=== PATIENT | male | born 1970 | race Caucasian/White ===

== ENCOUNTER 2018-11-01 10:07 | Observation (INO) | payer MEDICAID ==
[~2018-11-01] VITALS: Ht 193 cm; Wt 144.1 kg
--- NOTE | 2018-11-01 10:07 | NUR ---
JIE from [facility] c/o sternal chest pressure/tightness rad to left chest onset ~ 0500 today, denies NV or injury; PIV, 325 ASA, NTG x1, 4mg morphine RELAY TESTER per EMS; hx 1pk/day smoker, HTN, recent bronchitis; pt changed into gown, responds approp to staff, comfort measures provided, at BS, call light within reach; cardiac, NIBP & SpO2 monitors in place.
[2018-11-01] MEDS ORDERED: SODIUM CHLORIDE FLUSH 10ML SYR IVF ONE (10:30)
[2018-11-01] MEDS ORDERED: NITROGLYCERIN OINT 2%, 1GM TP ONE ×2 (10:30→10:32)
[2018-11-01 10:55] LABS: BASOPHILS # (AUTO) 0.08 x10^3/uL (0-0.1); BASOPHILS % (AUTO) 1 % (0-1); EOSINOPHILS # (AUTO) 0.51 x10^3/uL (0-0.4); EOSINOPHILS % (AUTO) 4 % (1-7); LYMPHOCYTES # (AUTO) 2.67 x10^3/uL (1-3.4); LYMPHOCYTES % (AUTO) 23 % (22-44); MD NO; MEAN CORPUSCULAR HGB CONC 33.3 g/dL (33.2-36.2); MEAN CORPUSCULAR VOLUME 90.2 fL (81-97); MEAN PLATELET VOLUME 8.3 fL (7.4-10.4); MONOCYTES # (AUTO) 0.74 x10^3/uL (0.2-0.8); MONOCYTES % (AUTO) 6 % (2-9); NEUTROPHILS # (AUTO) 7.72 x10^3/uL (1.8-6.8); NEUTROPHILS % (AUTO) 66 % (42-75); PLATELET COUNT 225 x10^3/uL (130-400); RED BLOOD COUNT 5.53 x10^6/uL (4.38-5.82); RED CELL DISTRIBUTION WIDTH 13.8 % (9.4-14.8)
[2018-11-01 10:56] LABS: ALBUMIN 3.4 g/dL (3.4-5.0); ANION GAP 3 mmol/L (5-15); CALCIUM 8.8 mg/dL (8.5-10.1); CHLORIDE 107 mmol/L (98-107)
[2018-11-01 11:00] LABS: CREATININE 0.84 mg/dL (0.7-1.3); TROPONIN I < 0.015 ng/mL (0.000-0.045)
[2018-11-01] MEDS ORDERED: PLEASE ENTER ALLERGIES MC SCH (11:00)
--- NOTE | 2018-11-01 11:02 | NUR ---
pt laying on gurney awake & comfortable, responds approp to staff, NAD, comfort measures provided, family at BS, call light within reach.
--- NOTE | 2018-11-01 11:19 | NUR ---
ERP at BS updating pt & family on POC
--- NOTE | 2018-11-01 12:17 | NUR ---
Pt [facility], room [facility]-1. Report called to Stefan.
[2018-11-01] MEDS ORDERED: ONDANSETRON 2MG/ML, 2ML IVPush PRN (12:30)
[2018-11-01] MEDS ORDERED: morphine SULFATE 10 MG/ML, 1ML IVPush PRN (12:30)
[2018-11-01] MEDS ORDERED: ACETAMINOPHEN 325 MG TABLET PO PRN (12:30)
[2018-11-01] MEDS ORDERED: NITROGLYCERIN 0.4 MG BOTTLE (25 TABS) SL PRN (12:30)
[2018-11-01] MEDS ORDERED: LABETALOL 5MG/ML, 20ML IVPush PRN (12:30)
[2018-11-01 12:42] VITALS: BP 134/80
[2018-11-01 12:44] LABS: D-DIMER < 0.19 ug/mlFEU (0.00-0.52); INTERNATIONAL NORMALIZED RATIO 0.98 (0.93-1.1); PARTIAL THROMBOPLASTIN TIME 32 Seconds (25-31); PROTHROMBIN TIME 10.3 Seconds (9.6-11.5)
[2018-11-01 12:45] LABS: BASOPHILS # (AUTO) 0.12 x10^3/uL (0-0.1); BASOPHILS % (AUTO) 1 % (0-1); EOSINOPHILS # (AUTO) 0.59 x10^3/uL (0-0.4); EOSINOPHILS % (AUTO) 5 % (1-7); LYMPHOCYTES # (AUTO) 3.36 x10^3/uL (1-3.4); LYMPHOCYTES % (AUTO) 26 % (22-44); MD NO; MEAN CORPUSCULAR HEMOGLOBIN 30.9 pg (27.5-34.5); MEAN CORPUSCULAR HGB CONC 34.5 g/dL (33.2-36.2); MEAN CORPUSCULAR VOLUME 89.7 fL (81-97); MEAN PLATELET VOLUME 8.4 fL (7.4-10.4); MONOCYTES # (AUTO) 0.78 x10^3/uL (0.2-0.8); MONOCYTES % (AUTO) 6 % (2-9); NEUTROPHILS % (AUTO) 62 % (42-75); PLATELET COUNT 220 x10^3/uL (130-400); RED BLOOD COUNT 5.44 x10^6/uL (4.38-5.82); RED CELL DISTRIBUTION WIDTH 13.9 % (9.4-14.8)
[2018-11-01 12:48] LABS: CHOL/HDL RATIO 4.4; LDL/HDL RATIO 2.2 (0.5-3.0)
[2018-11-01 12:53] VITALS: BP 145/83
[2018-11-01] MEDS: SODIUM CHLORIDE 0.9% 1,000 ML IV SCH (12:57)
[2018-11-01] MEDS: HEPARIN 5,000 UNITS/ML, 1ML SQ SCH ×2 (12:58→22:01)
[2018-11-01] MEDS: NICOTINE 14MG/24 HR PATCH.TD24 TD SCH (12:58)
[2018-11-01] MEDS ORDERED: RAMI10CA59 PO (14:36)
[2018-11-01] MEDS ORDERED: ALBU8.5H8 INH (14:36)
[2018-11-01] MEDS ORDERED: HYDR25TA6 PO (14:36)
[2018-11-01] MEDS ORDERED: DIPH25CA61 PO (14:36)
[2018-11-01 16:02] LABS: TROPONIN I < 0.015 ng/mL (0.000-0.045)
[2018-11-01 19:28] VITALS: BP 120/67
[2018-11-01 21:22] LABS: TROPONIN I < 0.015 ng/mL (0.000-0.045)
[2018-11-01] MEDS: ATORVASTATIN 80 MG TABLET PO SCH (22:00)
[2018-11-02 01:21] VITALS: BP 128/68
[2018-11-02 03:33] LABS: ALBUMIN 3.3 g/dL (3.4-5.0); ANION GAP 3 mmol/L (5-15); CALCIUM 8.2 mg/dL (8.5-10.1); CHLORIDE 110 mmol/L (98-107)
[2018-11-02 03:38] LABS: ALANINE AMINOTRANSFERASE 22 U/L (12-78); ALKALINE PHOSPHATASE 78 U/L (45-117); BILIRUBIN,TOTAL 0.3 mg/dL (0.2-1.0); CREATININE 0.83 mg/dL (0.7-1.3); TOTAL PROTEIN 6.5 g/dL (6.4-8.2); TROPONIN I < 0.015 ng/mL (0.000-0.045)
[2018-11-02] MEDS: HEPARIN 5,000 UNITS/ML, 1ML SQ SCH ×3 (05:57→23:00)
[2018-11-02 07:30] VITALS: BP 148/79
[2018-11-02] MEDS: SODIUM CHLORIDE 0.9% 1,000 ML IV SCH (08:24)
[2018-11-02] MEDS: ASPIRIN 81 MG TABLET CHEW PO SCH (08:24)
[2018-11-02] MEDS: NICOTINE 14MG/24 HR PATCH.TD24 TD SCH (12:52)
[2018-11-02 13:25] VITALS: BP 127/67
[2018-11-02] MEDS: GUAIFENESIN 200 MG TABLET PO SCH ×2 (17:24→20:09)
[2018-11-02 18:55] LABS: MICROSCOPIC NOT IND
[2018-11-02 19:44] VITALS: BP 132/73
[2018-11-02] MEDS ORDERED: LORazepam 0.5MG TABLET ONE (20:08)
[2018-11-02] MEDS: ATORVASTATIN 80 MG TABLET PO SCH (20:09)
[2018-11-02] MEDS ORDERED: LORazepam 0.5MG TABLET PO ONE (20:30)
[2018-11-03 01:28] VITALS: BP 147/78
[2018-11-03] MEDS: SODIUM CHLORIDE 0.9% 1,000 ML IV SCH (05:15)
[2018-11-03] MEDS: GUAIFENESIN 200 MG TABLET PO SCH ×2 (06:24→12:10)
[2018-11-03 07:15] VITALS: BP 134/78
[2018-11-03] MEDS: ASPIRIN 81 MG TABLET CHEW PO SCH (08:58)
[2018-11-03] MEDS: HEPARIN 5,000 UNITS/ML, 1ML SQ SCH (08:58)
[2018-11-03] MEDS ORDERED: FLUTICASONE NASAL SPRAY 16GM NAS SCH (09:00)
[2018-11-03] MEDS: NICOTINE 14MG/24 HR PATCH.TD24 TD SCH (12:10)
[2018-11-03 13:45] VITALS: BP 123/76
[2018-11-03] MEDS ORDERED: GUAI200T3 PO (14:41)
[2018-11-03] MEDS ORDERED: FLUT16SP NAS (14:41)
== END 2018-11-03 15:29 | disposition home or self-care (01) ==
LOC: ED 10:49 → INTOOBSV 11:24 → EDIP 11:24 → 5SO 12:35 → DCLOUNGE 11-03 15:23
PROVIDERS: ADMIT Internal Medicine; ATTEND Internal Medicine
DX: R07.89 Other chest pain (principal); J01.90 Acute sinusitis, unspecified; G47.30 Sleep apnea, unspecified; I10 Essential (primary) hypertension; D72.829 Elevated white blood cell count, unspecified; R51 Headache; F17.210 Nicotine dependence, cigarettes, uncomplicated; Z79.899 Other long term (current) drug therapy; Z82.49 Family history of ischemic heart disease and other diseases of the circulatory system
CPT/HCPCS: 36415; 71045; 78452; 80048; 80053; 80061; 81003; 82040; 83880; 84484; 85025; 85379; 85610; 85730; 93005; 93017; 96372; 99284; A9502; C8929; C9898; G0378; J1644; J7030